=== PATIENT | female | born 1990 | race Two or more races ===

== ENCOUNTER 2022-07-31 21:42 | Emergency (ER) | payer MEDICAID, OTHER ==
[~2022-07-31] VITALS: Ht 172.7 cm; Wt 104.5 kg
[2022-08-01 00:23] VITALS: BP 161/106
== END 2022-08-01 00:29 | disposition home or self-care (01) ==
LOC: ER 21:42 → EDSEX 21:42 → ER 08-01 00:29
DX: S00.03XA Contusion of scalp, initial encounter (principal); I10 Essential (primary) hypertension; W01.0XXA Fall on same level from slipping, tripping and stumbling without subsequent striking against object, initial encounter; Y93.89 Activity, other specified; Y92.89 Other specified places as the place of occurrence of the external cause; Y99.8 Other external cause status
CPT/HCPCS: 70450